=== PATIENT | male | born 1985 | race Caucasian/White ===

== ENCOUNTER 2017-11-21 19:09 | Emergency (ER) | payer SELFPAY ==
[~2017-11-21] VITALS: Ht 180.3 cm; Wt 93.0 kg
--- NOTE | 2017-11-21 21:16 | PHYS DOC ---
Past Medical History Past Medical History: No Pertinent History Past Surgical History: No Surgical History Additional Information: 0.25 PPD Alcohol Use: None Drug Use: Marijuana, Methamphetamine Adult General Chief Complaint Chief Complaint: MECHANICAL FALL HPI HPI Patient is a 32 year old male presents to the ED complaining of head injury 3 days ago. States that he was running and tripped and fell landing on the back of his head. Describes the pain as sharp. Rates the pain as 9 out of 10. States he was under the influence of methamphetamine. States he has been nauseous but has not vomited. Associated symptoms include neck pain. Denies LOC, vision changes, nausea/vomiting, weakness, dizziness, chest pain, shortness of breath or fever. Review of Systems Review of Systems Constitutional: Denies fever or chills [] Eyes: Denies change in visual acuity, redness, or eye pain [] HENT: Denies nasal congestion or sore throat [] Respiratory: Denies cough or shortness of breath [] Cardiovascular: No additional information not addressed in HPI [] GI: Denies abdominal pain, nausea, vomiting, bloody stools or diarrhea [] : Denies dysuria or hematuria [] Musculoskeletal: Complains of neck pain. Denies back pain. Integument: Denies rash or skin lesions [] Neurologic: Denies headache, focal weakness or sensory changes [] All other systems were reviewed and found to be within normal limits, except as documented in this note. Current Medications Current Medications Current Medications Medications (Trade) Dose Ordered Sig/Jonas Start Time Stop Time Status Last Admin Dose Admin Morphine Sulfate (Morphine Sulfate) 4 mg 1X ONCE 11/21/17 22:15 11/21/17 22:16 DC Ondansetron HCl (Zofran) 4 mg 1X ONCE 11/21/17 22:15 11/21/17 22:16 DC Allergies Allergies Allergies Coded Allergies Type Severity Reaction Last Updated Verified No Known Drug Allergies 11/21/17 No Physical Exam Physical Exam Constitutional: Well developed, well nourished, no acute distress, non-toxic appearance. [] HENT: Normocephalic, atraumatic, mild occipital tenderness. no swelling. half dollar sized abrasion. bilateral external ears normal, oropharynx moist, no oral exudates, nose normal. [] Eyes: PERRLA, EOMI, conjunctiva normal, no discharge. [] Neck: Normal range of motion, mild right lateral cervical tenderness, supple, no stridor. [] Cardiovascular:Heart rate regular rhythm, no murmur [] Lungs & Thorax: Bilateral breath sounds clear to auscultation [] Abdomen: Bowel sounds normal, soft, no tenderness, no masses, no pulsatile masses. [] Skin: Warm, dry, no erythema, no rash. [] Back: No tenderness, no CVA tenderness. [] Extremities: No tenderness, no cyanosis, no clubbing, ROM intact, no edema. [] Neurologic: Alert and oriented X 3, normal motor function, normal sensory function, no focal deficits noted. [] Psychologic: Affect normal, judgement normal, mood normal. [] Current Patient Data Vital Signs Vital Signs Date Time Temp Pulse Resp B/P (MAP) Pulse Ox O2 Delivery O2 Flow Rate FiO2 11/21/17 20:55 98.7 80 16 157/77 (103) 100 Room Air 98.7 EKG EKG [] Radiology/Procedures Radiology/Procedures PROCEDURE: CT HEAD AND CERVICAL SPINE [facility] Compliance statement: One or more of the following individualized dose reduction techniques were utilized for this examination: 1. Automated exposure control. 2. Adjustment of the mA and/or kV according to patient size. 3. Use of iterative reconstruction technique. Indication:s/p fall x 3 days ago; pt hit back of head. headache and neck pain x 2 days TECHNIQUE: CT head without IV contrast COMPARISON:None FINDINGS: No pathologic extra-axial fluid collection. Bilateral frontal lobe intraparenchymal hemorrhages are seen, the largest in the left frontal lobe measuring 1.4 x 1.0 cm. Perilesional edema is seen. No midline shift. The ventricles and basal cisterns are within normal limits. Small intraparenchymal hemorrhage is also seen in the inferior aspect of the right temporal lobe. Orbits are within normal limits. Subtle hairline fracture is seen of the left occipital bone. Visualized paranasal sinuses and mastoid air cells are clear. IMPRESSION: 1. Bilateral frontal and left temporal intraparenchymal hemorrhagic contusions with surrounding vasogenic edema. 2. Subtle hairline nondisplaced fracture of the left occipital bone. Indication:s/p fall x 3 days ago; pt hit back of head. headache and neck pain x 2 days TECHNIQUE: CT of the cervical spine without IV contrast with multiplanar reformats. COMPARISON:None FINDINGS: The cervical spine is in normal anatomic alignment. No compression deformities. Atlantoaxial joint interval is preserved. The facet joints are in normal anatomic alignment. No acute fractures. The noncontrast sections through the neck soft tissues are within normal limits. Clear lung apices. IMPRESSION: No acute fractures.[] Course & Med Decision Making Course & Med Decision Making Pertinent Labs and Imaging studies reviewed. (See chart for details) []Discussed case with Dr. Virk (on-call neurosurgeon at [facility]) requested transfer to another facility for patient. States potential complications are out of his scope. Patient requesting transfer to [facility]. Discussed case with Dr. Holm via [facility] transfer line, he accepts patient transfer. Patients headache improved with medications in the ED. Patient stable for transfer to [facility]. Dragon Disclaimer Dragon Disclaimer This electronic medical record was generated, in whole or in part, using a voice recognition dictation system. Departure Departure Impression: Primary Impression: Intraparenchymal hemorrhage of brain Additional Impression: Occipital fracture Disposition: 05 TRANSFER OTHER ([facility]) Condition: STABLE Referrals: NO PCP (PCP) Problem Qualifiers TRINH ORONA Nov 21, 2017 21:16
--- NOTE | 2017-11-21 21:58 | RAD ---
[facility] Compliance statement: One or more of the following individualized dose reduction techniques were utilized for this examination: 1. Automated exposure control. 2. Adjustment of the mA and/or kV according to patient size. 3. Use of iterative reconstruction technique. Indication:s/p fall x 3 days ago; pt hit back of head. headache and neck pain x 2 days TECHNIQUE: CT head without IV contrast COMPARISON:None FINDINGS: No pathologic extra-axial fluid collection. Bilateral frontal lobe intraparenchymal hemorrhages are seen, the largest in the left frontal lobe measuring 1.4 x 1.0 cm. Perilesional edema is seen. No midline shift. The ventricles and basal cisterns are within normal limits. Small intraparenchymal hemorrhage is also seen in the inferior aspect of the right temporal lobe. Orbits are within normal limits. Subtle hairline fracture is seen of the left occipital bone. Visualized paranasal sinuses and mastoid air cells are clear. IMPRESSION: 1. Bilateral frontal and left temporal intraparenchymal hemorrhagic contusions with surrounding vasogenic edema. 2. Subtle hairline nondisplaced fracture of the left occipital bone. Indication:s/p fall x 3 days ago; pt hit back of head. headache and neck pain x 2 days TECHNIQUE: CT of the cervical spine without IV contrast with multiplanar reformats. COMPARISON:None FINDINGS: The cervical spine is in normal anatomic alignment. No compression deformities. Atlantoaxial joint interval is preserved. The facet joints are in normal anatomic alignment. No acute fractures. The noncontrast sections through the neck soft tissues are within normal limits. Clear lung apices. IMPRESSION: No acute fractures. Critical findings were identified on 11/21/2017 9:42 PM, read back and verified with Dr. Owens on 11/21/2017 9:[address] Patrice Lazo DO. Electronically signed by: Patrice Lazo DO (11/21/2017 9:54 PM) [facility]
[2017-11-21] MEDS: ONDANSETRON PF 4 MG/2 ML VIAL. IV ONE (22:15)
[2017-11-21 22:40] LABS: BASO # 0.1 x10^3/uL (0.0-0.2); BASO % 1 % (0-3); EOS # 0.1 x10^3/uL (0.0-0.7); EOS % 1 % (0-3); HEMOGLOBIN 14.5 g/dL (13.0-17.5); LYMPH # 3.9 x10^3/uL (1.0-4.8); LYMPH % 33 % (24-48); MEAN CORPUSCULAR HEMOGLOBIN 32 pg (25-35); MEAN CORPUSCULAR HGB CONC 35 g/dL (31-37); MEAN CORPUSCULAR VOLUME 92 fL (79-100); MONO # 1.2 x10^3/uL (0.0-1.1); MONO % 11 % (0-9); NEUT # 6.3 x10^3uL (1.8-7.7); NEUT % 54 % (31-73); PLATELET COUNT 204 x10^3/uL (140-400); RED BLOOD COUNT 4.58 x10^6/uL (4.30-5.70); RED CELL DISTRIBUTION WIDTH 12.7 % (11.5-14.5); WHITE BLOOD COUNT 11.7 x10^3/uL (4.0-11.0)
[2017-11-21 22:41] LABS: BILIRUBIN,URINE NEGATIVE (NEG); CLARITY,URINE CLEAR; COLOR,URINE YELLOW; NITRITE,URINE NEGATIVE (NEG); PH,URINE 6.5; PROTEIN,URINE NEGATIVE (NEG-TRACE)
[2017-11-21 22:46] LABS: BACTERIA,URINE 0 /HPF (0-FEW); RBC,URINE OCC /HPF (0-2)
[2017-11-21 22:47] LABS: BARBITURATES NEG (NEG); BENZODIAZEPINES NEG (NEG); CANNABINOIDS POS (NEG); COCAINE NEG (NEG); METHADONE NEG (NEG); OPIATES NEG (NEG); PHENCYCLIDINE POS (NEG); SQUAMOUS EPITHELIAL CELL,UR OCC /LPF
[2017-11-21 22:48] LABS: AMPHETAMINE/METHAMPHETAMINE NEG (NEG)
[2017-11-21] MEDS: MORPHINE SULFATE 4 MG/ML VIAL. IV ONE (22:48)
[2017-11-21 22:49] LABS: PROTHROMBIN TIME PATIENT 12.7 SEC (11.7-14.0)
[2017-11-21 22:52] LABS: CALCIUM 9.1 mg/dL (8.5-10.1); CREATININE 0.8 mg/dL (0.7-1.3); GFR 113.5; POTASSIUM 3.5 mmol/L (3.5-5.1)
[2017-11-21 22:57] LABS: ALBUMIN 3.7 g/dL (3.4-5.0); ALBUMIN/GLOBULIN RATIO 0.9 (1.0-1.7); TOTAL BILIRUBIN 0.5 mg/dL (0.2-1.0); TOTAL PROTEIN 7.6 g/dL (6.4-8.2)
[2017-11-21 23:14] VITALS: BP 129/67
== END 2017-11-21 23:25 | disposition short-term general hospital (02) ==
LOC: ER 19:09
DX: S02.119A Unspecified fracture of occiput, initial encounter for closed fracture (principal); S06.360A Traumatic hemorrhage of cerebrum, unspecified, without loss of consciousness, initial encounter; F17.200 Nicotine dependence, unspecified, uncomplicated; W01.0XXA Fall on same level from slipping, tripping and stumbling without subsequent striking against object, initial encounter; Y93.02 Activity, running; Y92.89 Other specified places as the place of occurrence of the external cause; Y99.8 Other external cause status
CPT/HCPCS: 36415; 70450; 72125; 80053; 80307; 81001; 85025; 85610; 85730; 96374; 96375; 99285; J2270; J2405; G0479